=== PATIENT | female | born 1965 | race Hispanic/Latino ===

== ENCOUNTER 2023-04-12 20:38 | Emergency (ER) | payer OTHER ==
[~2023-04-12] VITALS: Ht 165.1 cm; Wt 90.7 kg
[2023-04-13 00:04] VITALS: BP 132/77; PULSE 88; RESP 20; O2SAT 99
== END 2023-04-13 00:10 | disposition home or self-care (01) ==
LOC: EDH 20:38
DX: M54.2 Cervicalgia (principal); M54.50 Low back pain, unspecified; R51.9 Headache, unspecified; I48.91 Unspecified atrial fibrillation; I10 Essential (primary) hypertension; E11.9 Type 2 diabetes mellitus without complications; E03.9 Hypothyroidism, unspecified; Z95.810 Presence of automatic (implantable) cardiac defibrillator; V89.2XXA Person injured in unspecified motor-vehicle accident, traffic, initial encounter; Y93.89 Activity, other specified; Y92.89 Other specified places as the place of occurrence of the external cause; Y99.8 Other external cause status
CPT/HCPCS: 71045; 72040; 72170; 93005